=== PATIENT | male | born 1955 | race African-American/Black ===

== ENCOUNTER 2023-11-23 13:24 | Emergency (ER) | payer SELFPAY ==
[2023-11-23] MEDS ORDERED: LevETIRAcetam 1,000 MG in DEXTROSE 5%-WATER 100 ML IV ONE (13:30)
[2023-11-23 14:24] LABS: ANION GAP 10 mmol/L (8-16); CALCIUM, TOTAL 9.9 mg/dL (8.8-10.5); CARBON DIOXIDE 24 mmol/L (22-29); CHLORIDE 106 mmol/L (98-107); CREATININE 0.96 mg/dL (0.60-1.30); GLOMERULAR FILTR. RATE CALC > 60 mL/min (>60); GLUCOSE,RANDOM 137 mg/dL (70-110); POTASSIUM 3.5 mmol/L (3.5-5.1); SODIUM SERUM 140 mmol/L (136-145); UREA NITROGEN, BLOOD 14 mg/dL (7-18)
[2023-11-23 14:28] LABS: ALCOHOL, BLOOD (SERUM) < 3 mg/dL (0-10)
[2023-11-23 14:48] LABS: ALANINE AMINOTRANSFERASE 21 U/L (12-78); ALBUMIN 3.1 g/dL (3.4-5.0); ALKALINE PHOSPHATASE 102 U/L (46-116); ASPARTATE AMINOTRANSFERASE 19 U/L (15-37); BILIRUBIN,TOTAL 0.3 mg/dL (0.1-1.0); CHOL/HDL RATIO 2.3 (4.2-7.3); CHOLESTEROL 123 mg/dL (131-200); HDL CHOLESTEROL 54 mg/dL (40-60); LDL CHOL (CALC.) 59 mg/dL (0-130); PHOSPHORUS 2.6 mg/dL (2.5-4.9); TRIGLYCERIDES 52 mg/dL (15-150)
[2023-11-23 14:52] LABS: PHENYTOIN (DILANTIN) 45.5 mcg/mL (10.0-20.0)
[2023-11-24 05:01] LABS: TROPONIN I-HIGH SENSITIVITY 11 ng/L (<76)
== END 2023-12-01 10:45 | disposition home or self-care (01) ==
LOC: EMS 12-01 10:45
DX: I63.9 Cerebral infarction, unspecified (principal); Z79.899 Other long term (current) drug therapy
CPT/HCPCS: 99285; 70496; 80061; 80053; 80185; 83735; 84100; 36415 ×2; 70498; 82948; 93005; 70450; 84484; G0480; J0712; J7060